=== PATIENT | male | born 1955 | race Hispanic/Latino ===

== ENCOUNTER 2018-08-10 22:50 | Emergency (ER) | payer MEDICAID ==
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
[2018-08-11 00:17] VITALS: BP 138/78; PULSE 85; RESP 18; TEMP 98
[2018-08-11 03:51] VITALS: O2SAT 99
== END 2018-08-11 00:16 | disposition home or self-care (01) ==
LOC: H.ER 22:50
DX: F31.9 Bipolar disorder, unspecified (principal); Z85.46 Personal history of malignant neoplasm of prostate; K75.9 Inflammatory liver disease, unspecified

== ENCOUNTER 2018-09-04 19:49 | Emergency (ER) | payer MEDICAID ==
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
[2018-09-04 21:48] LABS: BASO # 0.1 K/uL (0.0-0.2); EOS # 0.5 K/uL (0.0-0.7); EOS % 8.7 % (0.0-4.0); HEMOGLOBIN 11.6 g/dL (12.0-18.0); LYMPH # 1.9 K/uL (1.0-4.3); LYMPH % 34.6 % (20.0-40.0); MEAN CELL VOLUME 92.8 fl (80.0-94.0); MEAN CORPUSCULAR HEMOGLOBIN 31.2 pg (27.0-31.0); MEAN CORPUSCULAR HGB CONC 33.7 g/dL (33.0-37.0); MEAN PLATELET VOLUME 7.2 fl (7.2-11.7); MONO # 0.5 K/uL (0.0-0.8); MONO % 10.1 % (0.0-10.0); NEUT # 2.5 K/uL (1.8-7.0); NEUT % 45.6 % (50.0-75.0); NRBC % 0.1 % (0.0-0.0); RBC 3.72 Mil/uL (4.40-5.90); RED CELL DISTRIBUTION WIDTH 14.6 % (11.5-14.5); WHITE BLOOD COUNT 5.4 K/uL (4.8-10.8)
[2018-09-04 22:12] LABS: ALB/GLOB RATIO 1.1 (1.0-2.1); ALBUMIN 3.9 g/dL (3.5-5.0); ALT/SGPT 31 U/L (21-72); AST/SGOT 25 U/L (17-59); BLOOD UREA NITROGEN 16 mg/dl (9-20); CALCIUM 8.7 mg/dL (8.4-10.2); GFR NON-AFRICAN AMERICAN > 60
[2018-09-04 22:20] LABS: B-TYPE NATRIURETIC PEPTIDE 179 pg/ml (0-900)
[2018-09-05 01:34] VITALS: BP 133/71; PULSE 86; RESP 17; TEMP 97.9; O2SAT 98
--- NOTE | 2018-09-05 09:57 | US ---
Date of service: 09/04/2018 PROCEDURE: Bilateral lower extremity venous duplex Doppler. HISTORY: LE swelling COMPARISON: None available. TECHNIQUE: Bilateral common femoral, superficial femoral, popliteal and posterior tibial veins were evaluated. Flow was assessed with color Doppler, compressibility, assessment of phasic flow and augmentation response. FINDINGS: COMMON FEMORAL VEIN: Right CFV: Unremarkable. Left CFV: Unremarkable. SUPERFICIAL FEMORAL VEIN: Right SFV: Unremarkable. Left SFV: Noncompressible distal aspect left superficial femoral vein consistent with intraluminal thrombus. It is incompletely thrombosed as there is some demonstrable flow. Augmentation is absent. POPLITEAL VEIN: Right Popliteal: Unremarkable. Left Popliteal: Noncompressible left popliteal vein. There is some flow demonstrated. This is an incomplete thrombosis. The possibility of a subacute or chronic thrombosis must be considered given the presence of peripheral thrombus with central flow. POSTERIOR TIBIAL VEIN: Right PTV: Unremarkable. Left PTV: Unremarkable. OTHER FINDINGS: Incidental left inguinal lymph node, 0.8 cm in short axis. IMPRESSION: Deep venous thrombosis in the left distal superficial femoral vein and popliteal vein of indeterminate chronicity. There is some central residual flow demonstrated which may be seen with subacute/chronic deep venous thrombosis. The preliminary findings for this examination were reported by [facility] at 11:56 p.m. on 09/04/2018. There is concurrence of this report with the preliminary findings.
--- NOTE | 2018-09-05 12:44 | RAD ---
Date of service: 09/04/2018 PROCEDURE: Radiographs of the left tibia and fibula. HISTORY: Lower extremity ulcer, anatomic location unspecified. No antecedent history of trauma. COMPARISON: None available. TECHNIQUE: Frontal and lateral views obtained. FINDINGS: BONES: Findings suggestive of old proximal left fibular fracture. JOINT SPACES: Unremarkable. OTHER FINDINGS: Lower extremity soft tissue swelling. IMPRESSION: Soft tissue swelling without acute articular or osseous abnormality. Evidence of healed fracture proximal left fibula.
--- NOTE | 2018-09-05 16:13 | CP.PCM.CON ---
History of Present Illness - History of Present Illness History of Present Illness: Podiatry Consult Note for Dr. Mark: 63 y/o male patient with PMHx of alcohol abuse, seen and evaluated for left leg pain, swelling, and chronic ulceration. He states that he has had the pain for a few months and stopped seeing his doctor for ulceration and takes care of it at home himself. He reports pain to his left lower extremity. Patient denies N/V/F/SOB/CP. Review of Systems - Review of Systems Review of Systems: As per HPI Past Patient History - Infectious Disease Hx of Infectious Diseases: None - Past Social History Smoking Status: Current Some Days Smoker - CARDIAC Hx Hypertension: Yes Hx Peripheral Edema: Yes - PULMONARY Hx Tuberculosis: No - NEUROLOGICAL Hx Seizures: No - HEENT Hx HEENT Problems: No - RENAL Hx Chronic Kidney Disease: No - ENDOCRINE/METABOLIC Hx Endocrine Disorders: No - HEMATOLOGICAL/ONCOLOGICAL Hx Human Immunodeficiency Virus (HIV): No - INTEGUMENTARY Hx Cellulitis: Yes (LEFT LEG) - MUSCULOSKELETAL/RHEUMATOLOGICAL Hx Musculoskeletal Disorders: No Hx Falls: No - GASTROINTESTINAL Hx Gastrointestinal Disorders: No - GENITOURINARY/GYNECOLOGICAL Hx Sexually Transmitted Disorders: No - PSYCHIATRIC Hx Bipolar Disorder: Yes Hx Substance Use: No - SURGICAL HISTORY Hx Appendectomy: Yes - ANESTHESIA Hx Anesthesia: Yes Hx Anesthesia Reactions: No Hx Malignant Hyperthermia: No Meds Home Medications: Home Medication List Medication Instructions Recorded Confirmed Type Apixaban [Eliquis] 10 mg PO BID #34 tab 09/05/18 Rx Allergies/Adverse Reactions: Allergies Allergy/AdvReac Type Severity Reaction Status Date / Time ciprofloxacin [From Cipro] Allergy RASH Verified 09/05/18 09:49 Physical Exam - Extremities Exam Additional comments: Vascular: DP/PT palpable, CFT <3 seconds to all digits, TG warm to warm, + 2 pitting edema to bilateral lower extremities L > R. Ortho: Tenderness to palpation of LLE, tenderness upon calf compression to LLE Neuro: unable to assess Derm: Superficial ulceration noted to LLE at the level of the mid-tibia. Wound bed mixed granular/fibrotic with dried serous drainage present, no probe to bone, no tunneling, no tracking, mild erythema noted periwound - Neurological Exam Neurological exam: Alert, Oriented x3 - Psychiatric Exam Psychiatric exam: Normal Affect, Normal Mood Results - Vital Signs Recent Vital Signs: Last Vital Signs Temp 97.9 F 10/11/18 00:30 Pulse 86 09/05/18 00:30 Resp 17 09/05/18 00:30 BP 133/71 09/05/18 00:30 Pulse Ox 98 09/05/18 00:30 - Labs Result Diagrams: 09/04/18 21:44 09/04/18 21:44 Labs: Laboratory Results - last 24 hr 09/04/18 09/04/18 09/04/18 21:44 21:44 21:44 WBC 5.4 RBC 3.72 L Hgb 11.6 L Hct 34.5 L MCV 92.8 MCH 31.2 H MCHC 33.7 RDW 14.6 H Plt Count 193 MPV 7.2 Neut % (Auto) 45.6 L Lymph % (Auto) 34.6 [place] % (Auto) 10.1 H Eos % (Auto) 8.7 H Baso % (Auto) 1.0 Neut # (Auto) 2.5 Lymph # (Auto) 1.9 [place] # (Auto) 0.5 Eos # (Auto) 0.5 Baso # (Auto) 0.1 Sodium 141 Potassium 3.9 Chloride 107 Carbon Dioxide 22 Anion Gap 16 BUN 16 Creatinine 0.8 Est GFR ( Amer) > 60 Est GFR (Non-Af Amer) > 60 Random Glucose 74 L Lactic Acid 1.6 Calcium 8.7 Total Bilirubin 0.3 AST 25 ALT 31 Alkaline Phosphatase 73 NT-Pro-B Natriuret Pep 179 Total Protein 7.5 Albumin 3.9 Globulin 3.6 Albumin/Globulin Ratio 1.1 Assessment & Plan - Assessment and Plan (Free Text) Assessment: 63 y/o male patient with PMHx of alcohol abuse, seen and evaluated for left leg pain, swelling, and chronic ulceration. Plan: Patient seen and evaluated; discussed patient plan in detail with Dr. Mark Afebrile, WBC 5.4 L tib/fib x-rays; soft tissue swelling without acute articular or osseous abnormality Local wound care to LLE: Xeroform, DSD; follow up in wound care center for continued care of leg ulceration US RLE; DVT in left distal superficial femoral vein and popliteal vein of i ndeterminate chronicity Patient requesting to leave, educated on results of testing Rx for Eliquis per Dr. Grant Thank you for the consult - Date & Time Date: 09/04/18 Time: 11:40
== END 2018-09-05 00:25 | disposition left against medical advice (07) ==
LOC: H.ER 19:49
DX: L03.116 Cellulitis of left lower limb (principal); I10 Essential (primary) hypertension; Z79.01 Long term (current) use of anticoagulants
CPT/HCPCS: 73590; 80053; 83605; 83880; 85025; 87070; 87181; 93970; 99284; J1885

== ENCOUNTER 2019-03-20 15:17 | Emergency (ER) | payer MEDICAID, OTHER ==
[2019-03-20 15:18] VITALS: BMI 31.0
[2019-03-20 15:21] VITALS: TEMP 98.6
--- NOTE | 2019-03-20 15:47 | ED PDOC ---
Lower Extremity Pain/Injury Time Seen by Provider: 03/20/19 15:26 Chief Complaint (Nursing): Lower Extremity Problem/Injury Chief Complaint (Provider): Leg pain History Per: Patient Additional Complaint(s): Pt is a 63 yo male, PMH of HTN and DVT, presents to ED for evaluation of left lower leg pain, swelling and burning sensation. Additionally, Pt notes nasal congestion, sore throat, cough and chills x 1 week. Past Medical History Reviewed: Nursing Documentation, Vital Signs Vital Signs: Last Vital Signs Temp 98.6 F 03/20/19 15:19 Pulse 106 H 03/20/19 15:19 Resp 18 03/20/19 15:19 BP 137/81 03/20/19 15:19 Pulse Ox 97 03/20/19 15:19 - Medical History PMH: Anxiety, Bipolar Disorder, Depression, Gastritis, Hepatitis, HTN, Paranoia, Peripheral Edema, Pneumonia, Schizophrenia (paranoid schizoprenia) Denies: Diabetes, HIV, Chronic Kidney Disease, Seizures, Sexually Transmitted Disease - Surgical History Surgical History: Appendectomy - Family History Family History: States: Unknown Family Hx - Living Arrangements Living Arrangements: Other - Immunization History Hx Tetanus Toxoid Vaccination: No Hx Influenza Vaccination: Yes (08/2018) Hx Pneumococcal Vaccination: No - Home Medications Home Medications: Ambulatory Orders Medication Instructions Recorded Clopidogrel [Plavix] 75 mg PO DAILY #30 tab 10/02/18 Escitalopram [Lexapro] 20 mg PO DAILY #30 tab 10/02/18 Folic Acid 1 mg PO DAILY #30 tab 10/02/18 Multivitamin Therapeutic Tab 1 tab PO 0800 #30 tab 10/02/18 [Thera Tab] Rivaroxaban [Xarelto] 20 mg PO DAILY #30 tab 10/02/18 Thiamine [Vitamin B1 Tab] 100 mg PO DAILY #30 tab 10/02/18 amLODIPine [Norvasc] 2.5 mg PO DAILY #30 tab 10/02/18 risperiDONE [RisperDAL Tab] 2 mg PO DAILY 30 Days #30 tab 10/02/18 - Allergies Allergies/Adverse Reactions: Allergies Allergy/AdvReac Type Severity Reaction Status Date / Time ciprofloxacin [From Cipro] Allergy RASH Verified 09/16/18 20:52 Wells Criteria for PE - Wells Criteria for Pulmonary Embolism Clinical Signs and Symptoms of DVT: No P.E is #1 Diagnosis, or Equally Likely: No Heart Rate >100: No Immobilization at least 3 days;Surgery previous 4 weeks: No Previous, objectively diagnosed PE or DVT: Yes Hemoptysis: No Malignancy w/treatment within 6 months, or palliative: No Total Score: 1.5 Review of Systems ROS Statement: Except As Marked, All Systems Reviewed And Found Negative ENT: Positive for: Nose Congestion Respiratory: Positive for: Cough Musculoskeletal: Positive for: Leg Pain Physical Exam - Reviewed Nursing Documentation Reviewed: Yes Vital Signs Reviewed: Yes - Physical Exam Appears: Positive for: Well, Non-toxic, No Acute Distress Head Exam: Positive for: ATRAUMATIC, NORMAL INSPECTION, NORMOCEPHALIC Skin: Positive for: Normal Color, Warm, DRY Eye Exam: Positive for: EOMI, Normal appearance, PERRL ENT: Positive for: Normal ENT Inspection Neck: Positive for: Normal, Painless ROM Cardiovascular/Chest: Positive for: Regular Rate, Rhythm Respiratory: Positive for: CNT, Normal Breath Sounds Gastrointestinal/Abdominal: Positive for: Normal Exam, Soft Back: Positive for: Normal Inspection Extremity: Positive for: Normal ROM, Tenderness, Swelling. Negative for: Calf Tenderness Neurological/Psych: Positive for: Awake, Alert, Normal Tone - Laboratory Results Result Diagrams: 03/20/19 16:47 03/20/19 16:47 - ECG O2 Sat by Pulse Oximetry: 97 Medical Decision Making Medical Decision Making: Duplex LE US: NAD, as read by [place] CXR: NAd, as read by [place] Labs resulted and reviewed with Pt who demonstrated full understanding Pt asleep throughout ED stay. stable for discharge home at this time. Supportive care measures discussed Disposition - Clinical Impression Clinical Impression: Upper respiratory infection, Leg wound, left - Disposition Disposition: Routine/Home Disposition Time: 19:33 Condition: STABLE Instructions: Viral Upper Respiratory Infection, Adult (DC) Forms: [employer] (Azeri)
--- NOTE | 2019-03-20 16:18 | RAD ---
Date of service: 03/20/2019 HISTORY: cough COMPARISON: No prior. TECHNIQUE: Chest PA and lateral views FINDINGS: LUNGS: No active pulmonary disease. PLEURA: No significant pleural effusion identified. No pneumothorax apparent. CARDIOVASCULAR: No aortic atherosclerotic calcification present. Normal cardiac size. No pulmonary vascular congestion. OSSEOUS STRUCTURES: No significant abnormalities. VISUALIZED UPPER ABDOMEN: Normal. OTHER FINDINGS: None. IMPRESSION: No active disease.
[2019-03-20 17:01] LABS: BASO % 0.7 % (0.0-2.0); HEMOGLOBIN 14.9 g/dL (12.0-18.0); LYMPH # 0.5 K/uL (1.0-4.3); LYMPH % 13.3 % (20.0-40.0); MEAN CELL VOLUME 91.4 fl (80.0-94.0); MEAN CORPUSCULAR HEMOGLOBIN 30.9 pg (27.0-31.0); MEAN CORPUSCULAR HGB CONC 33.8 g/dL (33.0-37.0); MEAN PLATELET VOLUME 8.5 fl (7.2-11.7); MONO # 0.2 K/uL (0.0-0.8); MONO % 5.2 % (0.0-10.0); NEUT # 3.3 K/uL (1.8-7.0); NEUT % 80.8 % (50.0-75.0); RBC 4.81 Mil/uL (4.40-5.90); WHITE BLOOD COUNT 4.1 K/uL (4.8-10.8)
[2019-03-20 17:10] LABS: ALB/GLOB RATIO 1.4 (1.0-2.1); ALBUMIN 4.5 g/dL (3.5-5.0); ALT/SGPT 23 U/L (21-72); AST/SGOT 23 U/L (17-59); BLOOD UREA NITROGEN 19 mg/dl (9-20); CALCIUM 9.4 mg/dL (8.4-10.2); GFR NON-AFRICAN AMERICAN > 60
--- NOTE | 2019-03-20 18:36 | US ---
Left lower extremity ultrasound. Indication:r/o DVT Technique: Duplex ultrasound evaluation of the left lower extremity Comparison: None available Findings: There is normal flow, compressibility, and augmentation of the left common femoral, femoral, and popliteal veins. The left posterior tibial veins appear patent. Impression: No evidence of deep venous thrombosis in the left lower extremity.
[2019-03-20 20:59] VITALS: BP 132/79; PULSE 88; RESP 16; O2SAT 99
== END 2019-03-20 20:35 | disposition home or self-care (01) ==
LOC: H.ER 15:17
DX: J06.9 Acute upper respiratory infection, unspecified (principal); M79.605 Pain in left leg; I10 Essential (primary) hypertension; F31.9 Bipolar disorder, unspecified; Z88.1 Allergy status to other antibiotic agents; Z86.718 Personal history of other venous thrombosis and embolism